=== PATIENT | male | born 1995 | race Caucasian/White ===

== ENCOUNTER 2022-04-01 17:55 | Emergency (ER) | payer OTHER ==
[2022-04-01] MEDS ORDERED: NAPROSYN500 MG PO (19:03)
== END 2022-04-01 19:25 | disposition home or self-care (01) ==
LOC: ER1 17:55 → EDBD 17:55 → ER1 19:25
DX: S92.522A Displaced fracture of middle phalanx of left lesser toe(s), initial encounter for closed fracture (principal); S90.412A Abrasion, left great toe, initial encounter; S60.512A Abrasion of left hand, initial encounter; F17.200 Nicotine dependence, unspecified, uncomplicated; W19.XXXA Unspecified fall, initial encounter
CPT/HCPCS: 73630; 90471; 90715; 99283